=== PATIENT | male | born 1960 | race Caucasian/White ===

== ENCOUNTER 2018-03-03 19:02 | Emergency (ER) | payer SELFPAY ==
[~2018-03-03] VITALS: Ht 172.7 cm; Wt 74.8 kg
--- NOTE | 2018-03-03 19:09 | NUR ---
PT [id number] FROM [address] FOR ETOH, PT IS REFUSING TO ANSWER QUESTIONS, RESPIRATIONS EVEN AND UNLABORED, NO SOB, NAD NOTED ,VSS, PT ON MONITOR, PENDING ER PROVIDER SOHEILA
[2018-03-03 19:32] LABS: BASOPHILS # (AUTO) 0.1 /CMM (0.0-0.2); BASOPHILS % (AUTO) 1.2 % (0.0-2.0); EOSINOPHILS % (AUTO) 1.7 % (0.0-6.0); HEMATOCRIT 42 % (39-51); LYMPHOCYTES # (AUTO) 1.5 /CMM (0.8-4.8); LYMPHOCYTES % (AUTO) 25.2 % (20.0-44.0); MEAN CORPUSCULAR HGB CONC 33 g/dl (31.0-36.0); MEAN CORPUSCULAR VOLUME 97 fL (80-96); MONOCYTES # (AUTO) 0.5 /CMM (0.1-1.30); MONOCYTES % (AUTO) 9.1 % (2.0-12.0); NEUTROPHILS # (AUTO) 3.7 /CMM (1.8-8.9); NEUTROPHILS % (AUTO) 62.8 % (43.0-81.0); PLATELET COUNT (AUTO) 314 /CMM (150-450); RED BLOOD CELL COUNT(AUTO) 4.33 MIL/uL (4.5-6.0); WHITE BLOOD COUNT (AUTO) 5.9 K/uL (4.3-11.0)
[2018-03-03 19:45] LABS: CALCIUM, SERUM 8.4 mg/dL (8.5-10.1); CARBON DIOXIDE 24 mmol/L (21-32); CHLORIDE 105 mmol/L (98-107); GLUCOSE 101 mg/dL (74-106); POTASSIUM 3.8 mmol/L (3.5-5.1); SODIUM SERUM 142 mmol/L (136-145); UREA NITROGEN, BLOOD 19 mg/dL (7-18)
[2018-03-03 19:53] LABS: ACETAMINOPHEN < 2 ug/ml (10-30); ALANINE AMINOTRANSFERASE 107 U/L (12-78); ALBUMIN 3.6 g/dL (3.4-5.0); ALCOHOL, BLOOD 426 mg/dL (0-0); ALKALINE PHOSPHATASE 87 U/L (46-116); ASPARTATE AMINOTRANSFERASE 117 U/L (15-37); BILIRUBIN,DIRECT 0.2 mg/dL (0.0-0.2); BILIRUBIN,TOTAL 0.3 mg/dL (0.2-1.0); SALICYLATE 0.9 mg/dL (2.8-20.0); TOTAL PROTEIN, SERUM 8.2 g/dL (6.4-8.2)
--- NOTE | 2018-03-03 21:12 | NUR ---
UNABLE TO GIVE URINE SPECIMEN, DR ORELLANA MADE AWARE, PER MD, JUST GIVE PT URINAL AND COLLECT WHEN PT'S ABLE TO GIVE SPECIMEN
[2018-03-03] MEDS ORDERED: HALOPERIDOL LACTATE INJ 5 MG/ML VIAL ONE (21:21)
[2018-03-03] MEDS ORDERED: HALOPERIDOL LACTATE INJ 5 MG/ML VIAL IM ONE (21:30)
--- NOTE | 2018-03-03 22:24 | NUR ---
Patient is resting comfortably in bed with eyes closed. Easily aroused. VSS
--- NOTE | 2018-03-03 23:28 | NUR ---
PT ABLE TO TOLERATED PO FLUIDS. GIVEN PER ORDER OF DR. ORELLANA.
--- NOTE | 2018-03-04 02:28 | NUR ---
GIVEN SANDWICH AND JUICE. DENIES ANY SX'S AT THIS TIME. RESP EVEN AND UNLABORED.
--- NOTE | 2018-03-04 03:32 | NUR ---
RESTING QUIETLY AFTER SECOND JUICE. NAD NOTED
--- NOTE | 2018-03-04 05:01 | NUR ---
AAO X4. DENIES ANY SX'S AT THIS TIME. PER DR. PINEDA "PT CAN BE DISCHARGED". Patient discharged to home in stable condition. Written and verbal after care instructions given. REFUSES TO SIGN ACI. Ambulatory with a steady gait
[2018-03-04 05:03] VITALS: BP 130/80
== END 2018-03-04 05:04 | disposition home or self-care (01) ==
LOC: ER 19:03
DX: F10.129 Alcohol abuse with intoxication, unspecified (principal); S00.11XA Contusion of right eyelid and periocular area, initial encounter; R74.0 Nonspecific elevation of levels of transaminase and lactic acid dehydrogenase [LDH]; Z59.0 Homelessness; X58.XXXA Exposure to other specified factors, initial encounter; Y93.89 Activity, other specified; Y92.89 Other specified places as the place of occurrence of the external cause; Y99.8 Other external cause status; Y90.8 Blood alcohol level of 240 mg/100 ml or more
CPT/HCPCS: 36415; 70450; 80048; 80076; 80329; 85025; 96372; 99284; A4606; G0480 ×2; J1630; Z7610

== ENCOUNTER 2018-03-04 09:07 | Emergency (ER) | payer SELFPAY ==
[~2018-03-04] VITALS: Ht 167.6 cm; Wt 68.0 kg
--- NOTE | 2018-03-04 09:08 | NUR ---
DR COLE AT BEDSIDE
--- NOTE | 2018-03-04 09:15 | NUR ---
[facility] TO ER BED 15, HOOKED TO MONITOR, AWAITING MD PARNELL
[2018-03-04] MEDS ORDERED: IV NS 0.9% 1,000 ML BAG IV ONE (09:30)
--- NOTE | 2018-03-04 11:29 | NUR ---
Patient is resting comfortably in bed with eyes closed. Easily aroused. VSS
--- NOTE | 2018-03-04 16:24 | NUR ---
PT REQUESTED FOR WATER; GIVEN WATER TOLERATED NO ADVERSE REACTION
[2018-03-04 23:57] VITALS: BP 130/76
--- NOTE | 2018-03-04 23:57 | NUR ---
Patient discharged to home in stable condition. Written and verbal after care instructions given. Patient verbalizes understanding of instruction. IV removed. Catheter intact and site benign. Pressure and 4x4 applied to site. No bleeding noted.
== END 2018-03-04 23:59 | disposition home or self-care (01) ==
LOC: ER 09:10
DX: F10.121 Alcohol abuse with intoxication delirium (principal); E86.0 Dehydration; Z59.0 Homelessness; Y90.8 Blood alcohol level of 240 mg/100 ml or more
CPT/HCPCS: 36415; 96360; 96361; 99283; A4606; G0480; J7030; Z7610